=== PATIENT | male | born 1930 | race Caucasian/White ===

== ENCOUNTER 2017-04-01 21:04 | Observation (INO) | payer MEDICARE, OTHER ==
[2017-04-02] MEDS: SOD CHLORIDE 0.9% 1,000 ML IV ×3 (00:24→06:29)
[2017-04-02] MEDS: ONDANSETRON 4 MG INJ IV (00:26)
[2017-04-02 00:38] LABS: ADD MAN DIFF? NO
[2017-04-02 00:49] LABS: WHITE BLOOD COUNT 13.7 10^3/ul (4.8-10.8)
[2017-04-02 00:49] LABS: ABNORMAL IP MESSAGE 1; BASOPHILS % 0.1 % (0.0-2.0); HEMATOCRIT 37.2 % (42.0-52.0); HEMOGLOBIN 12.4 g/dl (14.0-18.0); LYMPHOCYTES # 0.5 10^3/ul (0.8-2.9); MEAN CORPUSCULAR HEMOGLOBIN 25.8 pg (29.0-33.0); MEAN CORPUSCULAR HGB CONC 33.3 g/dl (32.0-37.0); MEAN CORPUSCULAR VOLUME 77.3 fl (82.0-101.0); MEAN PLATELET VOLUME 12.4 fl (7.4-10.4); MONOCYTE # 0.6 10^3/ul (0.3-0.9); MONOCYTES % 4.7 % (0.0-11.0); NEUTROPHIL # 12.1 10^3/ul (1.6-7.5); NEUTROPHILS % 88.3 % (39.0-77.0); PLATELET COUNT 93 10^3/UL (140-415); POSITIVE DIFF @See below; RED BLOOD COUNT 4.81 10^6/ul (4.70-6.10); RED CELL DISTRIBUTION WIDTH 12.8 % (11.5-14.5)
[2017-04-02 01:09] LABS: ALANINE AMINOTRANSFERASE 31 IU/L (13-69); ALBUMIN/GLOBULIN RATIO 1.17; ALKALINE PHOSPHATASE 91 IU/L (42-121); ANION GAP 18 (8-16); ASPARTATE AMINO TRANSFERASE 23 IU/L (15-46); BILIRUBIN,INDIRECT 0.4 mg/dl (0-1.1); BILIRUBIN,TOTAL 0.4 mg/dl (0.2-1.3); BLOOD UREA NITROGEN 57 mg/dl (7-20); CALCIUM 9.4 mg/dl (8.4-10.2); CARBON DIOXIDE 26 mmol/L (21-31); CHLORIDE 91 mmol/L (97-110); CREATININE 0.96 mg/dl (0.61-1.24); LIPASE 276 U/L (23-300); POTASSIUM 4.7 mmol/L (3.5-5.1); SODIUM 130 mmol/L (135-144); TOTAL PROTEIN 7.4 g/dl (6.1-8.1)
[2017-04-02 01:12] LABS: GLUCOSE 459 mg/dl (70-220)
[2017-04-02 01:15] LABS: LACTIC ACID 2.9 mmol/L (0.5-2.0)
[2017-04-02 01:19] LABS: TROPONIN-I 0.014 ng/ml (0.00-0.12)
[2017-04-02 02:18] LABS: ADD UMIC NO; UR ASCORBIC ACID NEGATIVE (NEGATIVE); UR BILIRUBIN (Dip) NEGATIVE (NEGATIVE); UR BLOOD (Dip) NEGATIVE (NEGATIVE); UR CLARITY CLEAR (CLEAR); UR COLOR YELLOW (YELLOW); UR GLUCOSE (Dip) 3+ mg/dL (NEGATIVE); UR KETONES (Dip) NEGATIVE (NEGATIVE); UR LEUKOCYTE ESTERASE (Dip) NEGATIVE Leu/ul (NEGATIVE); UR NITRITE (Dip) NEGATIVE (NEGATIVE); UR TOTAL PROTEIN (Dip) NEGATIVE (NEGATIVE); UR UROBILINOGEN (Dip) NEGATIVE (NEGATIVE)
[2017-04-02] MEDS ORDERED: ONDANSETRON 4 MG INJ IV ×2 (03:30→04:30)
[2017-04-02] MEDS ORDERED: ACETAMINOPHEN 325 MG TAB PO ×2 (03:30→04:30)
[2017-04-02] MEDS: INSULIN LISPRO 100 UNIT/ML VIAL SC (03:35)
[2017-04-02] MEDS ORDERED: GLUCOSE GEL 15 GRAM TUBE PO ×2 (04:30)
[2017-04-02] MEDS ORDERED: GLUCAGON 1 MG INJ IM (04:30)
[2017-04-02] MEDS ORDERED: morphine 2 MG INJ IV (04:30)
[2017-04-02] MEDS ORDERED: DEXTROSE 50% 50 ML SYRINGE IV ×2 (04:30)
[2017-04-02] MEDS ORDERED: ALBUTEROL/IPRATROPIUM (NEB) 3 ML AMP HHN (04:30)
[2017-04-02] MEDS ORDERED: GLUCOSE GEL 15 GRAM TUBE BUCCAL (04:30)
[2017-04-02] MEDS ORDERED: NACL 0.9% 3 ML SYG IV (04:30)
[2017-04-02 05:30] LABS: LACTIC ACID 2.5 mmol/L (0.5-2.0)
[2017-04-02] MEDS: DEXAMETHASONE 4 MG TAB PO ×4 (06:00→21:24)
[2017-04-02] MEDS: PANTOPRAZOLE (EC) 40 MG TAB PO (06:31)
[2017-04-02] MEDS: INSULIN ASPART [NOVOLOG] 3 ML PEN SC ×7 (07:53→20:23)
[2017-04-02] MEDS: PHENYTOIN 100 MG CAP PO ×3 (08:30→20:30)
[2017-04-02] MEDS: AMLODIPINE 10 MG TAB PO ×2 (08:31→09:00)
[2017-04-02] MEDS: INSULIN GLARGINE [LANtus] 3 ML PEN SC (08:33)
[2017-04-03] MEDS: ACCU-CHEK XX (01:40)
[2017-04-03] MEDS: DEXAMETHASONE 4 MG TAB PO ×3 (05:36→22:02)
[2017-04-03] MEDS: PANTOPRAZOLE (EC) 40 MG TAB PO (05:38)
[2017-04-03 05:55] LABS: ADD MAN DIFF? NO
[2017-04-03 06:00] LABS: ABNORMAL IP MESSAGE 1; BASOPHILS % 0.1 % (0.0-2.0); HEMOGLOBIN 11.7 g/dl (14.0-18.0); LYMPHOCYTES # 0.5 10^3/ul (0.8-2.9); LYMPHOCYTES % 5.1 % (15.0-51.0); MEAN CORPUSCULAR HEMOGLOBIN 25.8 pg (29.0-33.0); MEAN CORPUSCULAR HGB CONC 32.5 g/dl (32.0-37.0); MEAN CORPUSCULAR VOLUME 79.5 fl (82.0-101.0); MEAN PLATELET VOLUME 11.6 fl (7.4-10.4); MONOCYTE # 0.2 10^3/ul (0.3-0.9); MONOCYTES % 1.5 % (0.0-11.0); NEUTROPHIL # 9.2 10^3/ul (1.6-7.5); NEUTROPHILS % 90.4 % (39.0-77.0); PLATELET COUNT 91 10^3/UL (140-415); POSITIVE DIFF @See below; RED BLOOD COUNT 4.53 10^6/ul (4.70-6.10); RED CELL DISTRIBUTION WIDTH 13.2 % (11.5-14.5)
[2017-04-03 06:00] LABS: WHITE BLOOD COUNT 10.1 10^3/ul (4.8-10.8)
[2017-04-03 06:57] LABS: ANION GAP 13 (8-16); BLOOD UREA NITROGEN 41 mg/dl (7-20); CARBON DIOXIDE 28 mmol/L (21-31); CHLORIDE 97 mmol/L (97-110); CREATININE 0.89 mg/dl (0.61-1.24); GLUCOSE 208 mg/dl (70-220); PHOSPHORUS 4.6 mg/dl (2.5-4.9); POTASSIUM 4.7 mmol/L (3.5-5.1); SODIUM 133 mmol/L (135-144)
[2017-04-03] MEDS: INSULIN ASPART [NOVOLOG] 3 ML PEN SC ×7 (08:38→21:00)
[2017-04-03] MEDS: INSULIN GLARGINE [LANtus] 3 ML PEN SC (08:40)
[2017-04-03] MEDS: AMLODIPINE 10 MG TAB PO (08:48)
[2017-04-03] MEDS: PHENYTOIN 100 MG CAP PO ×2 (08:48→21:12)
[2017-04-03 11:36] LABS: HEMOGLOBIN A1C 8.1 % (0-5.9)
[2017-04-04] MEDS: ACCU-CHEK XX (02:00)
[2017-04-04] MEDS: PANTOPRAZOLE (EC) 40 MG TAB PO (05:40)
[2017-04-04] MEDS: DEXAMETHASONE 4 MG TAB PO ×2 (05:40→14:34)
[2017-04-04] MEDS: INSULIN ASPART [NOVOLOG] 3 ML PEN SC ×10 (07:35→18:23)
[2017-04-04 08:00] LABS: ADD MAN DIFF? NO
[2017-04-04 08:07] LABS: WHITE BLOOD COUNT 13.5 10^3/ul (4.8-10.8)
[2017-04-04 08:07] LABS: ABNORMAL IP MESSAGE 1; BASOPHILS % 0.2 % (0.0-2.0); HEMOGLOBIN 12.2 g/dl (14.0-18.0); LYMPHOCYTES # 0.5 10^3/ul (0.8-2.9); LYMPHOCYTES % 3.8 % (15.0-51.0); MEAN CORPUSCULAR HEMOGLOBIN 26.1 pg (29.0-33.0); MEAN CORPUSCULAR VOLUME 79.1 fl (82.0-101.0); MEAN PLATELET VOLUME 11.4 fl (7.4-10.4); MONOCYTE # 0.6 10^3/ul (0.3-0.9); MONOCYTES % 4.1 % (0.0-11.0); NEUTROPHILS % 88.9 % (39.0-77.0); PLATELET COUNT 103 10^3/UL (140-415); POSITIVE DIFF @See below; RED BLOOD COUNT 4.68 10^6/ul (4.70-6.10); RED CELL DISTRIBUTION WIDTH 12.9 % (11.5-14.5)
[2017-04-04 08:44] LABS: ANION GAP 13 (8-16); BLOOD UREA NITROGEN 44 mg/dl (7-20); CALCIUM 9.2 mg/dl (8.4-10.2); CARBON DIOXIDE 28 mmol/L (21-31); CHLORIDE 96 mmol/L (97-110); CREATININE 0.93 mg/dl (0.61-1.24); GLUCOSE 134 mg/dl (70-220); POTASSIUM 4.3 mmol/L (3.5-5.1); SODIUM 133 mmol/L (135-144)
[2017-04-04] MEDS: AMLODIPINE 10 MG TAB PO (08:44)
[2017-04-04] MEDS: PHENYTOIN 100 MG CAP PO (08:44)
[2017-04-04] MEDS: INSULIN GLARGINE [LANtus] 3 ML PEN SC (08:46)
== END 2017-04-04 19:43 | disposition home or self-care (01) ==
LOC: E/R 21:04 → PP2 04-02 03:19
PROVIDERS: Internal Medicine
DX: R73.9 Hyperglycemia, unspecified (principal); I10 Essential (primary) hypertension; C71.9 Malignant neoplasm of brain, unspecified; I25.10 Atherosclerotic heart disease of native coronary artery without angina pectoris; Z95.5 Presence of coronary angioplasty implant and graft; E87.1 Hypo-osmolality and hyponatremia; Z85.07 Personal history of malignant neoplasm of pancreas; Z82.49 Family history of ischemic heart disease and other diseases of the circulatory system
CPT/HCPCS: 36415; 71045; 80048; 80053; 81003; 82962; 83036; 83605; 83690; 83735; 84100; 84484; 85025; 93005; 96372; 96374; 99285-25; G0378

== ENCOUNTER 2017-04-08 08:58 | Inpatient (IN) | payer MEDICARE, OTHER ==
[2017-04-08] MEDS: HYDROmorphONE 1 MG/ML SYG IV ×3 (09:26→23:51)
[2017-04-08] MEDS: ONDANSETRON 4 MG INJ IV (09:26)
[2017-04-08 10:04] LABS: ALANINE AMINOTRANSFERASE 44 IU/L (13-69); ALBUMIN 4.1 g/dl (3.3-4.9); ALBUMIN/GLOBULIN RATIO 1.24; ALKALINE PHOSPHATASE 209 IU/L (42-121); ANION GAP 14 (8-16); ASPARTATE AMINO TRANSFERASE 123 IU/L (15-46); BILIRUBIN,INDIRECT 0.4 mg/dl (0-1.1); BILIRUBIN,TOTAL 0.4 mg/dl (0.2-1.3); BLOOD UREA NITROGEN 33 mg/dl (7-20); CALCIUM 9.3 mg/dl (8.4-10.2); CARBON DIOXIDE 28 mmol/L (21-31); CHLORIDE 93 mmol/L (97-110); CREATININE 0.95 mg/dl (0.61-1.24); GLUCOSE 103 mg/dl (70-220); INR 1.06; POTASSIUM 4.1 mmol/L (3.5-5.1); PROTIME 13.9 Sec (11.9-14.9); PT RATIO 1.1; SODIUM 131 mmol/L (135-144); TOTAL PROTEIN 7.4 g/dl (6.1-8.1)
[2017-04-08 10:05] LABS: PARTIAL THROMBOPLASTIN TIME 26.5 Sec (25.0-35.0)
[2017-04-08 10:15] LABS: LACTIC ACID 2.5 mmol/L (0.5-2.0)
[2017-04-08 10:16] LABS: TROPONIN-I 0.015 ng/ml (0.00-0.12)
[2017-04-08 11:39] LABS: WHITE BLOOD COUNT 22.7 10^3/ul (4.8-10.8)
[2017-04-08 11:39] LABS: ABNORMAL IP MESSAGE 1; HEMATOCRIT 40.8 % (42.0-52.0); HEMOGLOBIN 13.2 g/dl (14.0-18.0); MEAN CORPUSCULAR HEMOGLOBIN 25.5 pg (29.0-33.0); MEAN CORPUSCULAR HGB CONC 32.4 g/dl (32.0-37.0); MEAN CORPUSCULAR VOLUME 78.8 fl (82.0-101.0); NUCLEATED RED BLOOD CELLS% 0.1 /100WBC (0.0-0.0); POSITIVE DIFF @See below; RED BLOOD COUNT 5.18 10^6/ul (4.70-6.10); RED CELL DISTRIBUTION WIDTH 13.1 % (11.5-14.5)
[2017-04-08 12:06] LABS: LACTIC ACID 2.4 mmol/L (0.5-2.0)
[2017-04-08 12:07] LABS: PLATELET COUNT 27 10^3/UL (140-415)
[2017-04-08 12:08] LABS: ADD MAN DIFF? YES
[2017-04-08] MEDS ORDERED: ONDANSETRON 4 MG INJ IV ×2 (12:30→17:30)
[2017-04-08 13:33] LABS: ANISOCYTOSIS 1+ (0-0); BAND NEUTROPHILS % (M) 9 % (0-4); BURR CELLS 1+ (0-0); EOSINOPHILS % (M) 1 % (0-7); LYMPHOCYTES #M 0.9 10^3/ul (0.8-2.9); LYMPHOCYTES % (M) 4 % (15-51); METAMYELOCYTES #M 0.2 10^3/ul (0.0-0.0); METAMYELOCYTES %M 1 % (0-0); MICROCYTOSIS 1+ (0-0); MONOCYTE #M 1.1 10^3/ul (0.3-0.9); MONOCYTES % (M) 5 % (0-11); MYELOCYTES #M 0.4 10^3/ul (0.0-0.0); MYELOCYTES % (M) 2 % (0-0); PLATELET ESTIMATE SIG DECREASED; PLATELET MORPHOLOGY COMMENT @See below; POIKILOCYTOSIS 1+ (0-0); REACTIVE LYMPHOCYTES #M 0.9 10^3/ul (0.0-0.0); REACTIVE LYMPHOCYTES% (M) 4 % (0-0); SEG NEUT #M 17.3 10^3/ul (1.6-7.5); SEGMENTED NEUTROPHILS (M) % 74 % (39-77); SMUDGE%M 9 % (0-0)
[2017-04-08 14:03] LABS: URINE BLOOD (Dip) POC 1+ (NEGATIVE); URINE GLUCOSE (Dip) POC Negative (NEGATIVE); URINE KETONES (Dip) POC Negative (NEGATIVE); URINE LEUKOCYTE EST (Dip) POC Negative (NEGATIVE); URINE NITRITE (Dip) POC Negative (NEGATIVE); URINE TOTAL PROTEIN POC 2+ (NEGATIVE)
[2017-04-08 14:34] LABS: LACTIC ACID 2.5 mmol/L (0.5-2.0)
[2017-04-08 15:17] LABS: ADD UMIC YES; UR ASCORBIC ACID NEGATIVE (NEGATIVE); UR BILIRUBIN (Dip) NEGATIVE (NEGATIVE); UR BLOOD (Dip) 2+ mg/dL (NEGATIVE); UR CLARITY CLEAR (CLEAR); UR COLOR YELLOW (YELLOW); UR GLUCOSE (Dip) NEGATIVE (NEGATIVE); UR KETONES (Dip) NEGATIVE (NEGATIVE); UR LEUKOCYTE ESTERASE (Dip) NEGATIVE Leu/ul (NEGATIVE); UR NITRITE (Dip) NEGATIVE (NEGATIVE); UR RBC 12 /HPF (0-5); UR SPECIFIC GRAVITY (Dip) 1.015 (1.003-1.030); UR TOTAL PROTEIN (Dip) 1+ mg/dl (NEGATIVE); UR UROBILINOGEN (Dip) NEGATIVE (NEGATIVE); UR WBC 0 /HPF (0-5)
[2017-04-08] MEDS: ACETAMINOPHEN 325 MG TAB PO (17:18)
[2017-04-08] MEDS ORDERED: DOCUSATE SODIUM 100 MG CAP PO (17:30)
[2017-04-08] MEDS ORDERED: NACL 0.9% 3 ML SYG IV (17:30)
[2017-04-08] MEDS ORDERED: BISACODYL (EC) 5 MG TAB PO (17:30)
[2017-04-08] MEDS ORDERED: ACETAMINOPHEN 325 MG TAB PO (17:30)
[2017-04-08] MEDS ORDERED: GLUCOSE GEL 15 GRAM TUBE BUCCAL (19:30)
[2017-04-08] MEDS ORDERED: DEXTROSE 50% 50 ML SYRINGE IV ×2 (19:30)
[2017-04-08] MEDS ORDERED: GLUCOSE GEL 15 GRAM TUBE PO ×2 (19:30)
[2017-04-08] MEDS ORDERED: GLUCAGON 1 MG INJ IM (19:30)
[2017-04-08] MEDS: morphine 2 MG INJ IV (19:39)
[2017-04-08] MEDS: CEFTRIAXONE 1 GM/50 ML (PMX) 50 ML IVPB (20:34)
[2017-04-08] MEDS: FAMOTIDINE 20 MG TAB PO (20:35)
[2017-04-08] MEDS: DEXAMETHASONE 4 MG TAB PO (20:35)
[2017-04-08] MEDS: SOD CHLORIDE 0.9% 1,000 ML IV (20:43)
[2017-04-08] MEDS: INSULIN ASPART [NOVOLOG] 3 ML PEN SC (21:00)
[2017-04-09] MEDS ORDERED: NALOXONE (0.4 MG/ML) INJ ×3 (03:31→03:45)
[2017-04-09] MEDS ORDERED: LORAZEPAM 2 MG INJ (03:59)
[2017-04-09] MEDS ORDERED: PROPOFOL 100 ML (04:27)
[2017-04-09] MEDS ORDERED: PROPOFOL 100 ML IV (04:30)
[2017-04-09 05:24] LABS: AADO2 Arterial 220.8 mmHg (7.0-24.0); Allen Test ACCEPTAB; Arterial Base Excess -1.8 mmol/L (-3.0-3); Arterial Blood Gas Oxygen Sat 99.7 mmHG (95.0-100.0); Arterial COHb 0.4 % (0.0-3.0); Arterial HCO3 20.7 mmol/L (22.0-26.0); Arterial MetHb 0.3 % (0.0-1.5); Arterial Total Hemglobin 14.3 g/dl (12.0-18.0); Arterial pCO2 29.7 mmhg (35-45); MODE VENT - AC; Site Right Radial
[2017-04-09] MEDS: PROPOFOL 100 ML IV ×2 (05:30→16:30)
[2017-04-09 05:51] LABS: ABNORMAL IP MESSAGE 1; HEMATOCRIT 45.4 % (42.0-52.0); HEMOGLOBIN 14.5 g/dl (14.0-18.0); MEAN CORPUSCULAR HEMOGLOBIN 25.5 pg (29.0-33.0); MEAN CORPUSCULAR HGB CONC 31.9 g/dl (32.0-37.0); MEAN CORPUSCULAR VOLUME 79.9 fl (82.0-101.0); NUCLEATED RED BLOOD CELLS% 0.4 /100WBC (0.0-0.0); POSITIVE DIFF @See below; RED BLOOD COUNT 5.68 10^6/ul (4.70-6.10); RED CELL DISTRIBUTION WIDTH 13.4 % (11.5-14.5)
[2017-04-09 05:51] LABS: WHITE BLOOD COUNT 30.8 10^3/ul (4.8-10.8)
[2017-04-09] MEDS: PANTOPRAZOLE (EC) 40 MG TAB PO (06:00)
[2017-04-09 06:03] LABS: INR 1.71; PARTIAL THROMBOPLASTIN TIME 42.2 Sec (25.0-35.0); PROTIME 20.4 Sec (11.9-14.9); PT RATIO 1.6
[2017-04-09 06:08] LABS: ADD MAN DIFF? YES
[2017-04-09 06:10] LABS: PLATELET COUNT 18 10^3/UL (140-415)
[2017-04-09 06:17] LABS: ALANINE AMINOTRANSFERASE 76 IU/L (13-69); ALBUMIN 3.6 g/dl (3.3-4.9); ALBUMIN/GLOBULIN RATIO 0.94; ALKALINE PHOSPHATASE 650 IU/L (42-121); ANION GAP 20 (8-16); ASPARTATE AMINO TRANSFERASE 382 IU/L (15-46); BILIRUBIN,INDIRECT 0.6 mg/dl (0-1.1); BILIRUBIN,TOTAL 0.6 mg/dl (0.2-1.3); BLOOD UREA NITROGEN 30 mg/dl (7-20); CALCIUM 7.8 mg/dl (8.4-10.2); CARBON DIOXIDE 20 mmol/L (21-31); CHLORIDE 101 mmol/L (97-110); CREATININE 0.85 mg/dl (0.61-1.24); GLUCOSE 227 mg/dl (70-220); MAGNESIUM 1.6 mg/dl (1.7-2.5); POTASSIUM 4.1 mmol/L (3.5-5.1); SODIUM 137 mmol/L (135-144); TOTAL PROTEIN 7.4 g/dl (6.1-8.1)
[2017-04-09] MEDS ORDERED: ETOMIDATE 20 MG INJ (07:00)
[2017-04-09] MEDS ORDERED: SUCCINYLCHOLINE CHLORIDE 100 MG/5 ML SYG IV (07:00)
[2017-04-09 07:49] LABS: ANISOCYTOSIS 1+ (0-0); BAND NEUTROPHILS #M 3.6 10^3/ul (0.0-0.6); BAND NEUTROPHILS % (M) 12 % (0-4); BURR CELLS 3+ (0-0); LYMPHOCYTES #M 2.7 10^3/ul (0.8-2.9); LYMPHOCYTES % (M) 9 % (15-51); METAMYELOCYTES #M 0.3 10^3/ul (0.0-0.0); METAMYELOCYTES %M 1 % (0-0); MICROCYTOSIS 1+ (0-0); MYELOCYTES #M 1.8 10^3/ul (0.0-0.0); MYELOCYTES % (M) 6 % (0-0); PLATELET ESTIMATE SIG DECREASED; POIKILOCYTOSIS 3+ (0-0); PROMYELOCYTES #M 0.3 10^3/ul (0-0); PROMYELOCYTES % (M) 1 % (0-0); SEGMENTED NEUTROPHILS (M) % 71 % (39-77); SMUDGE%M 15 % (0-0)
[2017-04-09] MEDS: INSULIN ASPART [NOVOLOG] 3 ML PEN SC ×4 (08:00→12:34)
[2017-04-09] MEDS: [UNRECOGNIZED DRUG - REMARK] XX ×3 (08:32→12:29)
[2017-04-09] MEDS: SOD CHLORIDE 0.9% 1,000 ML IV ×2 (08:59→12:49)
[2017-04-09] MEDS ORDERED: OLMESARTAN PO (09:00)
[2017-04-09] MEDS ORDERED: [UNRECOGNIZED DRUG - OTHER] PO (09:00)
[2017-04-09] MEDS ORDERED: AMLODIPIN PO (09:00)
[2017-04-09] MEDS: FAMOTIDINE 20 MG TAB PO (09:00)
[2017-04-09] MEDS ORDERED: HCTHIAZID PO (09:00)
[2017-04-09] MEDS: PIPER-TAZO 3.375 GM IV (PMX) 100 ML IVPB ×3 (09:07→18:36)
[2017-04-09] MEDS: INSULIN GLARGINE [LANtus] 3 ML PEN SC (09:09)
[2017-04-09] MEDS: MAGNESIUM SULFATE 2 GM/50 ML 50 ML IVPB (09:23)
[2017-04-09] MEDS: FAMOTIDINE 20 MG INJ IV (09:23)
[2017-04-09] MEDS: DEXAMETHASONE 4 MG/ML 1 ML INJ IV ×3 (09:23→22:19)
[2017-04-09] MEDS: SOD CHLORIDE 0.9% 500 ML IV (12:50)
[2017-04-09] MEDS: LOSARTAN 50 MG TAB PO (12:51)
[2017-04-09] MEDS: HYDROCHLOROTHIAZIDE 12.5 MG CAP PO (12:51)
[2017-04-09] MEDS: AMLODIPINE 5 MG TAB PO (12:52)
[2017-04-09] MEDS ORDERED: LIDOCAINE 1% (MPF) 5 ML VIAL SC (13:00)
[2017-04-09] MEDS: ACCU-CHEK XX ×11 (13:00→23:04)
[2017-04-09] MEDS ORDERED: DEXTROSE 50% 50 ML SYRINGE IV ×2 (13:00)
[2017-04-09] MEDS: INSULIN HUMAN REGULAR 100 UNIT in SOD CHLORIDE 0.9% 99 ML IV (14:34)
[2017-04-09] MEDS ORDERED: PENDING SANTYL ORDER FOR WOUND CARE XX (15:00)
[2017-04-09 15:21] LABS: LACTATE DEHYDROGENASE 14140 IU/L (313-618)
[2017-04-09 16:14] LABS: TYPE AND SCREEN 1 1
[2017-04-09] MEDS: PANTOPRAZOLE IV 80 MG in SOD CHLORIDE 0.9% 100 ML IV (16:45)
[2017-04-09] MEDS: COLLAGENASE 30 GM TUBE TOP (17:00)
[2017-04-09] MEDS ORDERED: VANCOMYCIN IV PER PHARMACY XX (18:30)
[2017-04-09] MEDS: VANCOMYCIN 1.25 GM in SOD CHLORIDE 0.45% 250 ML IVPB (20:56)
[2017-04-09] MEDS: morphine 2 MG INJ IV (23:40)
[2017-04-10] MEDS ORDERED: EPINEPHrine 0.1 MG/ML SYG
[2017-04-10] MEDS ORDERED: NA BICARBONATE 8.4% 50 ML SYG
[2017-04-10] MEDS ORDERED: VANCOMYCIN 1.25 GM in SOD CHLORIDE 0.45% 250 ML IVPB (22:30)
[2017-04-12 15:12] LABS: PROCALCITONIN 4.01 ng/mL (<0.10)
== END 2017-04-10 00:03 | disposition expired | DRG 64 ==
LOC: ICU 04-09 04:38 → E/R 08:58 → MS1 12:02
PROC: 0BH17EZ Insertion of Endotracheal Airway into Trachea, Via Natural or Artificial Opening (ICD-10-PCS; principal; 2017-04-09)
PROC: 5A1935Z Respiratory Ventilation, Less than 24 Consecutive Hours (ICD-10-PCS; 2017-04-09)
PROC: 4A033R1 Measurement of Arterial Saturation, Peripheral, Percutaneous Approach (ICD-10-PCS; 2017-04-09)
PROC: 30233R1 Transfusion of Nonautologous Platelets into Peripheral Vein, Percutaneous Approach (ICD-10-PCS; 2017-04-09)
DX: I61.5 Nontraumatic intracerebral hemorrhage, intraventricular (principal); J96.01 Acute respiratory failure with hypoxia; C79.31 Secondary malignant neoplasm of brain; D69.6 Thrombocytopenia, unspecified; K92.2 Gastrointestinal hemorrhage, unspecified; M54.5 Low back pain; I60.9 Nontraumatic subarachnoid hemorrhage, unspecified; I62.00 Nontraumatic subdural hemorrhage, unspecified; R73.9 Hyperglycemia, unspecified; I10 Essential (primary) hypertension; I25.10 Atherosclerotic heart disease of native coronary artery without angina pectoris; Z85.07 Personal history of malignant neoplasm of pancreas; Z95.5 Presence of coronary angioplasty implant and graft; Z92.21 Personal history of antineoplastic chemotherapy; Z79.4 Long term (current) use of insulin; Z92.3 Personal history of irradiation; T50.905A Adverse effect of unspecified drugs, medicaments and biological substances, initial encounter; Y92.230 Patient room in hospital as the place of occurrence of the external cause
CPT/HCPCS: 31500; 36415; 36430; 36600; 70450; 71045; 72131; 74176; 80053; 81001; 81003; 82803; 82962; 83605; 83615; 83735; 84145; 84484; 85025; 85610; 85730; 86644; 86850; 86900; 86901; 87040; 87070; 87081; 87086; 92950; 93005; 94002; 94770; 96374; 96375; 99285-25